=== PATIENT | female | born 1975 | race Caucasian/White ===

== ENCOUNTER → 2016-03-18 | Outpatient (CLI) | payer OTHER ==
[~2016-03-18] MED LIST: IOHEXOL 300 MG/ML 100ML VIAL. IV ONE
--- NOTE | 2016-03-18 13:03 | KCIC ---
PROCEDURE CT abdomen and pelvis with and without contrast. HISTORY Hematuria for 3 weeks with pelvic pain. TECHNIQUE Precontrast imaging through the abdomen and pelvis was performed. Late portovenous phase imaging through the abdomen was performed. Delayed imaging through the abdomen and pelvis was performed. Coronal and sagittal reformats are provided for the delayed imaging. Maximum intensity projection reformats are provided as well. The patient received 95 milliliters of intravenous Omnipaque 300. Patient developed hives upon administration of IV contrast. Patient had no known contrast allergy. Hives and itching improved after 25 milligrams of oral Benadryl given to the patient. Patient was observed and later discharged in stable condition. Patient was evaluated by the radiologist. Contrast allergy was documented per hospital protocol. One or more of the following individualized dose reduction techniques were utilized for this exam: 1. Automated exposure control. 2. Adjustment of the mA and/or kV according to patient's size. 3. Use of iterative reconstruction technique. COMPARISON February 22, 2016. FINDINGS Precontrast imaging does not demonstrate any obstructing or nonobstructing renal calculus. There is again a left pelvic kidney. There is no renal mass. Kidneys are symmetrically perfused. There is no filling defect within either collecting system. Right collecting system is well evaluated proximally, not evaluated below the pelvic inlet. Left renal collecting system is normal caliber and without filling defect, opacified in its entirety. No bladder mass is identified. Exam was protocolled to evaluate the kidneys and collecting systems, not other structures. The lung bases are clear. There is no pleural effusion. The heart is not enlarged. Liver, gallbladder, spleen, pancreas, and adrenals are all grossly unremarkable. Aorta is normal caliber. Left renal vein appears retro aortic. There is no small bowel obstruction or mural thickening. Colon is grossly unremarkable. Evaluation of bowel is limited without oral contrast. Uterus is retroverted. Free pelvic fluid may be physiologic. There is no adnexal mass. Calcified phleboliths are noted. Bony structures are intact. IMPRESSION 1. Negative for urothelial mass. A portion of the distal right ureter is not opacified, limiting evaluation. 2. Left pelvic kidney again noted. 3. Negative for urolithiasis. Electronically signed by: Parviz Tan MD (Mar 18, 2016 13:00:02)
== END | disposition home or self-care (01) ==
LOC: KCIC CT 08:57
PROVIDERS: ATTEND Nurse Practitioner Occupational Health
DX: R31.9 Hematuria, unspecified (principal)
CPT/HCPCS: 74178; 82565; Q9967

== ENCOUNTER → 2016-05-20 | Outpatient (CLI) | payer OTHER ==
--- NOTE | 2016-05-20 11:51 | KCIC ---
Right thumb, three views Indication: Right thumb pain. Time of exam 11:18 a.m. The alignment is normal. The 1st metacarpal as well as the phalanges of the thumb appear intact. No fractures are seen. The soft tissues are unremarkable. Impression: No acute bony abnormality is detected. Electronically signed by: Hema Blake MD (May 20, 2016 11:49:22)
--- NOTE | 2016-05-20 12:10 | KCIC ---
Wrist three views right Indication: Right thumb pain radiating to the wrist for 3 weeks. Time of exam 11:16 a.m. The distal radius and ulna are intact. The carpus and metacarpals are intact. No fractures are seen. Soft tissues are unremarkable. Impression: No acute bony abnormality is detected. Electronically signed by: Hema Blake MD (May 20, 2016 12:08:46)
== END | disposition home or self-care (01) ==
LOC: KCIC 10:53
PROVIDERS: ATTEND Nurse Practitioner Family
DX: M79.644 Pain in right finger(s) (principal)
CPT/HCPCS: 73110; 73140

== ENCOUNTER → 2017-05-08 | Outpatient (CLI) | payer OTHER | END | disposition home or self-care (01) | LOC: KCIC US 08:05 | DX: N92.0 Excessive and frequent menstruation with regular cycle (principal) | CPT/HCPCS: 76830; 76856 ==

== ENCOUNTER 2017-07-09 08:26 | Observation (INO) | payer OTHER ==
[~2017-07-09 08:26] MED LIST changes: +AZTREONAM 1 GM in IV NORMAL SALINE 50ML 50 ML IV; +ESTROGENS, CONJ VAGINAL CREAM 30GM TUBE.; -IOHEXOL 300 MG/ML 100ML VIAL. IV ONE; +LIDOCAINE 1% PF 2 ML VIAL. ID; +LIDOCAINE 1% PF 30 ML VIAL.; +ONDANSETRON PF 4 MG/2 ML VIAL. IV; +SURGICEL HEMOSTAT 4X8 EACH.; +fentaNYL PF VIAL 100 MCG/2 ML VIAL IV
[2017-07-09] MEDS ORDERED: LIDOCAINE 1%/EPI 1:100,000 20 ML VIAL. INJ (08:30)
[2017-07-09 08:58] LABS: ADD MAN DIFF? NO
[2017-07-09 09:00] LABS: BASO # 0.1 x10^3/uL (0.0-0.2); BASO % 1 % (0-3); EOS # 0.2 x10^3/uL (0.0-0.7); EOS % 3 % (0-3); HEMATOCRIT 39.2 % (36.0-47.0); HEMOGLOBIN 13.4 g/dL (12.0-15.5); LYMPH # 1.2 x10^3/uL (1.0-4.8); LYMPH % 20 % (24-48); MEAN CORPUSCULAR HEMOGLOBIN 29 pg (25-35); MEAN CORPUSCULAR HGB CONC 34 g/dL (31-37); MEAN CORPUSCULAR VOLUME 84 fL (79-100); MONO # 0.4 x10^3/uL (0.0-1.1); MONO % 7 % (0-9); NEUT # 4.2 x10^3uL (1.8-7.7); NEUT % 70 % (31-73); PLATELET COUNT 161 x10^3/uL (140-400); RED BLOOD COUNT 4.64 x10^6/uL (3.50-5.40); RED CELL DISTRIBUTION WIDTH 13.2 % (11.5-14.5); WHITE BLOOD COUNT 6.1 x10^3/uL (4.0-11.0)
[2017-07-09] MEDS: IV RINGERS,LACTATED 1000ML 1,000 ML IV (09:00)
[2017-07-09] MEDS ORDERED: ONDANSETRON PF 4 MG/2 ML VIAL. (09:17)
[2017-07-09] MEDS ORDERED: LIDOCAINE 2% PF Vial for OR 5 ML VIAL. (09:17)
[2017-07-09] MEDS ORDERED: PROPOFOL 0 ML IV (09:17)
[2017-07-09] MEDS ORDERED: DEXAMETHASONE SOD PHOS 20 MG/5 ML VIAL. (09:17)
[2017-07-09] MEDS ORDERED: MIDAZOLAM HCL/PF 2 MG/2 ML VIAL. (09:18)
[2017-07-09] MEDS ORDERED: fentaNYL PF VIAL 100 MCG/2 ML VIAL ×3 (09:18→11:22)
[2017-07-09] MEDS ORDERED: ROCURONIUM 50 MG/5 ML VIAL. (09:18)
[2017-07-09 09:22] LABS: NEG OBC UR NEG; POS OBC UR POS; U PREG PATIENT NEGATIVE (NEG)
[2017-07-09] MEDS: CLINDAMYCIN 900MG PREMIX 50 ML IV (09:30)
[2017-07-09] MEDS: AZTREONAM IV Push 1 GM VIAL. IVP (09:34)
[2017-07-09] MEDS: BUPIVACAINE-EPI 0.25%-1:200000 50 ML VIAL. (09:48)
[2017-07-09] MEDS: LIDOCAINE 1%/EPI 1:100,000 30 ML VIAL. IJ (09:48)
[2017-07-09] MEDS ORDERED: GLYCOPYRROLATE 1 MG/5 ML VIAL. (10:38)
[2017-07-09] MEDS ORDERED: NEOSTIGMINE METHYLSULFATE 5 MG/5 ML SYRINGE. (10:38)
[2017-07-09] MEDS ORDERED: PROPOFOL 20 ML IV (10:43)
[2017-07-09] MEDS ORDERED: SEVOFLURANE 61 TO 120 MINUTES. IH (10:48)
[2017-07-09] MEDS ORDERED: 0.9 % SODIUM CHLORIDE 10 ML DISP.SYRIN. IV (11:15)
[2017-07-09] MEDS ORDERED: ZOLPIDEM 5 MG TABLET. PO (11:15)
[2017-07-09] MEDS ORDERED: PROCHLORPERAZINE 10 MG/2 ML VIAL. IV (11:15)
[2017-07-09] MEDS ORDERED: DEXTROSE 50% 25 GM / 50ML DISP.SYRIN. IV (11:15)
[2017-07-09] MEDS ORDERED: ONDANSETRON PF 4 MG/2 ML VIAL. IV (11:15)
[2017-07-09] MEDS ORDERED: diphenhydrAMINE HCL 25 MG CAPSULE PO (11:15)
[2017-07-09] MEDS ORDERED: CALCIUM CARBONATE 500 MG TAB.CHEW PO (11:15)
[2017-07-09] MEDS ORDERED: diphenhydrAMINE 50 MG/ML VIAL IV (11:15)
[2017-07-09] MEDS ORDERED: KETOROLAC 30 MG/ML INJ. IV (11:15)
[2017-07-09] MEDS: fentaNYL PF VIAL 100 MCG/2 ML VIAL IV ×3 (11:27→11:57)
[2017-07-09] MEDS ORDERED: MORPHINE SULFATE 4 MG/ML DISP.SYRIN. (11:38)
[2017-07-09] MEDS: MORPHINE SULFATE 2 MG/ML DISP.SYRIN. IV ×2 (11:41→11:51)
[2017-07-09] MEDS: PROCHLORPERAZINE 10 MG/2 ML VIAL. IV (11:56)
[2017-07-09] MEDS ORDERED: IBUPROFEN 800 MG TABLET. PO (17:45)
[2017-07-09] MEDS: oxyCODONE/APAP 5/325 1 TAB TABLET PO (18:05)
[2017-07-09] MEDS: SIMETHICONE 80 MG TAB.CHEW PO (22:11)
[2017-07-09] MEDS: GABAPENTIN 300 MG CAPSULE. PO (22:11)
[2017-07-09] MEDS: OPIUM/BELLADONNA 30/16.2MG SUPP.RECT. PR (22:12)
[2017-07-10] MEDS: GABAPENTIN 300 MG CAPSULE. PO (06:26)
[2017-07-10 07:24] LABS: ADD MAN DIFF? NO
[2017-07-10 07:28] LABS: BASO # 0.1 x10^3/uL (0.0-0.2); BASO % 1 % (0-3); EOS # 0.1 x10^3/uL (0.0-0.7); EOS % 0 % (0-3); HEMATOCRIT 37.9 % (36.0-47.0); LYMPH # 2.4 x10^3/uL (1.0-4.8); LYMPH % 19 % (24-48); MEAN CORPUSCULAR HEMOGLOBIN 29 pg (25-35); MEAN CORPUSCULAR HGB CONC 34 g/dL (31-37); MEAN CORPUSCULAR VOLUME 84 fL (79-100); MONO # 0.9 x10^3/uL (0.0-1.1); MONO % 7 % (0-9); NEUT # 9.2 x10^3uL (1.8-7.7); NEUT % 73 % (31-73); PLATELET COUNT 192 x10^3/uL (140-400); RED BLOOD COUNT 4.49 x10^6/uL (3.50-5.40); RED CELL DISTRIBUTION WIDTH 13.3 % (11.5-14.5); WHITE BLOOD COUNT 12.6 x10^3/uL (4.0-11.0)
[2017-07-10] MEDS: SIMETHICONE 80 MG TAB.CHEW PO (08:47)
== END 2017-07-10 11:45 | disposition home or self-care (01) ==
LOC: SURG 08:26 → 3 NORTH 11:03
DX: N83.202 Unspecified ovarian cyst, left side (principal); N94.6 Dysmenorrhea, unspecified; N85.2 Hypertrophy of uterus
CPT/HCPCS: 36415; 81025; 85025; 86850; 86900; 86901; 88307; A7015; G0378; G0379; J0780; J1100; J2250; J2270; J2405; J2704; J2710; J3010; J3490; J7030; J7120

== ENCOUNTER → 2018-07-06 | Outpatient (CLI) | payer OTHER ==
[2017-07-10 11:21] VITALS: BP 102/59
[~2018-07-06] MED LIST changes: +ALBU2.5V8 INH; -AZTREONAM 1 GM in IV NORMAL SALINE 50ML 50 ML IV; +DOCU-109 PO; -ESTROGENS, CONJ VAGINAL CREAM 30GM TUBE.; +IBUP800T19 PO; -LIDOCAINE 1% PF 2 ML VIAL. ID; -LIDOCAINE 1% PF 30 ML VIAL.; -ONDANSETRON PF 4 MG/2 ML VIAL. IV; +OXYC1TAB7 PO; -SURGICEL HEMOSTAT 4X8 EACH.; -fentaNYL PF VIAL 100 MCG/2 ML VIAL IV
--- NOTE | 2018-07-06 16:18 | KCIC ---
3 views of the right knee dated 07/06/2018. No comparison available. Clinical data indication: Pain. FINDINGS: 3 views of the right knee show normal bony alignment. No displaced fracture. No acute osseous or articular abnormality. No apparent joint effusion or loose body. IMPRESSION: No acute radiographic abnormality. Electronically signed by: Dwayne Berumen MD (07/06/2018 4:15 PM) [email or web address]
== END | disposition home or self-care (01) ==
LOC: KCIC 15:40
PROVIDERS: ATTEND Family Medicine
DX: M25.561 Pain in right knee (principal)
CPT/HCPCS: 73562

== ENCOUNTER → 2018-08-31 | Outpatient (CLI) | payer OTHER ==
[2017-07-10 11:21] VITALS: BP 102/59
--- NOTE | 2018-09-01 09:44 | KCIC ---
HIP LEFT 2 VIEW, HIP RIGHT 2 VIEW, L-SPINE 6V AP/LAT/OBL/FLEX/EXT History: Chronic hip pain, lumbar pain Comparison: None. Right hip: Findings: 2 views of the right hip are submitted. No acute fracture or dislocation is identified. Right hip joint space is adequate. Right femoral head morphology is maintained. There is tiny osteophyte of the superior right acetabulum. There is mild degenerative change pubic symphysis. Impression: 1. No significant osseous abnormality is identified, tiny superior right acetabular osteophyte. Left hip: 2 views of the left hip are submitted. No acute fracture or dislocation is identified. Left hip joint space is adequate. There are likely phleboliths in the left pelvis. IMPRESSION: 1. No significant radiographic abnormality is identified of the left hip. Lumbar radiographs: 8 views of the lumbar spine are submitted. Lumbar vertebral body stature is adequate. There is facet degenerative change greater inferiorly of the lumbar spine. There is mild spondylosis greatest L3-4 and L4-5, very minimally L1-2. There is mild to moderate degenerative disc disease at L3-4 and L4-5. There is negligible posterior subluxation L3 relative to L4 slightly accentuated with extension and reduced with flexion. IMPRESSION: 1. There is degenerative disc disease and spondylosis greatest at L3-4 and L4-5. There is facet degenerative change greater inferiorly of the lumbar spine. There is negligible posterior subluxation L3 relative to L4. Electronically signed by: Emile Liu MD (09/01/2018 9:41 AM) [email or web address]
== END | disposition home or self-care (01) ==
LOC: KCIC 12:46
PROVIDERS: ATTEND Family Medicine
DX: M47.816 Spondylosis without myelopathy or radiculopathy, lumbar region (principal); M51.36 Other intervertebral disc degeneration, lumbar region; M25.78 Osteophyte, vertebrae; G89.29 Other chronic pain; M25.552 Pain in left hip; M25.551 Pain in right hip; X58.XXXA Exposure to other specified factors, initial encounter; Y93.89 Activity, other specified; Y92.89 Other specified places as the place of occurrence of the external cause; Y99.8 Other external cause status
CPT/HCPCS: 72114; 73502

== ENCOUNTER → 2018-10-21 | Outpatient (CLI) | payer OTHER ==
[2017-07-10 11:21] VITALS: BP 102/59
--- NOTE | 2018-10-21 10:07 | KCIC ---
EXAMINATION: Magnetic resonance imaging (MRI) of the lumbar spine without contrast 10/21/2018 9:30 AM HISTORY: Chronic low back pain. History of left pelvic kidney. TECHNIQUE: Multiplanar multi-weighted MRI of the lumbar spine was performed without intravenous contrast using the standard lumbar spine protocol. Contrast information: None administered. COMPARISON: Lumbar spine radiograph 08/31/2018 FINDINGS: There is minimal retrolisthesis of L3 on L4. Vertebral body heights are maintained. Schmorl's nodes are identified involving the endplates at L1, L2, L3 and L4. No significant height loss is identified. Conus medullaris terminates at T12. Distal spinal cord signal intensity is normal in all sequences. Cauda equina nerve roots appear intact. There is disc desiccation at all levels of lumbar spine, sparing L5-S1. There is mild disc height loss at L3-L4 with Modic type II endplate degenerative changes. Otherwise, marrow signal intensity is normal in all sequences. Abdominal aorta is normal in caliber. Left pelvic kidney is identified. Visualized portions of the sacrum appear intact. L1-L2: There is mild disc bulge. No significant facet arthropathy. No neuroforaminal or spinal canal stenosis. L2-L3: There is mild disc bulge with central annular fissure. No significant facet arthropathy. No neuroforaminal or spinal canal stenosis. L3-L4: There is mild disc bulge. There is mild facet arthropathy, left greater than right. Mild left neuroforaminal stenosis. No spinal canal stenosis. L4-L5: There is a disc bulge with central disc protrusion. There is moderate facet arthropathy ligamentum flavum infolding. There is moderate right and mild left neuroforaminal stenosis. No spinal canal stenosis. L5-S1: Disc is normal in configuration. There is moderate facet arthropathy. There is no neuroforaminal or spinal canal stenosis. IMPRESSION: Mild to moderate degenerative changes of the lumbar spine, as described in detail above. Electronically signed by: Anabell Morejon MD (10/21/2018 10:04 AM) [email or web address]
== END | disposition home or self-care (01) ==
LOC: KCIC MRI 09:14
PROVIDERS: ATTEND Physical Medicine & Rehabilitation
DX: M47.896 Other spondylosis, lumbar region (principal); M48.061 Spinal stenosis, lumbar region without neurogenic claudication; M12.88 Other specific arthropathies, not elsewhere classified, other specified site; G89.29 Other chronic pain
CPT/HCPCS: 72148

== ENCOUNTER → 2019-03-29 | Outpatient (CLI) | payer OTHER ==
[2017-07-10 11:21] VITALS: BP 102/59
--- NOTE | 2019-03-29 11:45 | KCIC ---
EXAM: MRI Lumbar Spine without IV contrast INDICATION: Chronic pain and numbness, tingling and pain in the lower extremities.. TECHNIQUE: Sagittal T1-w, T2-w, and STIR images, and axial T1-w and T2-w images of the lumbar spine. COMPARISON: L-spine MRI of October 21, 2018 FINDINGS: The lowest fully formed disc is referred to as the L5-S1 level. ALIGNMENT: Alignment is within normal limits. OSSEOUS: No evidence of fracture or bone destruction. Marrow signal is within normal limits. CONUS MEDULLARIS & CAUDA EQUINA: The conus medullaris is in normal position. The conus medullaris and cauda equina are intrinsically normal. SOFT TISSUES: Left pelvic kidney redemonstrated. DISC LEVELS: T12-L1: Unremarkable. L1-L2: Disc desiccation with minimal loss of height. No significant stenosis. L2-L3: Mild right greater than left bilateral facet hypertrophy. No stenosis. L3-L4: Diffuse disc desiccation and loss of height with broad posterior disc bulge along with bilateral facet hypertrophy results in mild left greater than right bilateral foraminal narrowing. No central canal stenosis. L4-L5: Discussed by complex with both the central and right extraforaminal focal disc protrusion is present along with bilateral facet hypertrophy. Together, these results in at least moderate bilateral foraminal narrowing, right greater than left. No central canal stenosis. L5-S1: Mild bilateral facet hypertrophy. No significant stenosis. IMPRESSION: Multilevel lumbar spinal degenerative spondylosis as described, most conspicuously at L4-L5 where at least moderate right greater than left bilateral foraminal stenosis is present. Overall, findings are similar to the previous exam. Electronically signed by: Nica Maldonado MD (03/29/2019 11:42 AM) [facility]
== END | disposition home or self-care (01) ==
LOC: KCIC MRI 09:07
PROVIDERS: ATTEND Nurse Practitioner Family
DX: M47.816 Spondylosis without myelopathy or radiculopathy, lumbar region (principal); M48.061 Spinal stenosis, lumbar region without neurogenic claudication; M89.38 Hypertrophy of bone, other site; M51.26 Other intervertebral disc displacement, lumbar region
CPT/HCPCS: 72148

== ENCOUNTER → 2019-04-21 | Outpatient (CLI) | payer OTHER ==
[2017-07-10 11:21] VITALS: BP 102/59
[~2019-04-21] MED LIST changes: +CETI10TA16 PO; +DICL75TA PO; +FLUO10TA PO; +MELO15TA23 PO; +RANI300C PO
--- NOTE | 2019-04-21 11:35 | PAIN ---
DATE OF SERVICE: 04/21/2019 INITIAL CONSULTATION FOR PAIN CLINIC CHIEF COMPLAINT: Low back, left lower extremity pain. HISTORY OF PRESENT ILLNESS: This is a 43-year-old female, who presents with history of pain in low back, left lower extremity for about 2 years, gradually increasing, not a result of any specific injury or accident she is aware of, but is getting worse over time, especially with standing when she does at her place of employment. The patient reports the pain is constant, sharp, stabbing, throbbing, shooting in the low back radiating to posterior gluteus, lateral thigh, lateral anterior thigh, medial thigh, into the medial lower leg as well on the left side, but also on the right, much worse on the left. The patient reports it is radiating, burning, cramping and aching in the back as well. The patient has tried physical therapy, has had chiropractic treatment, is doing exercise currently. She has had some trigger point injections which were not significantly helpful. Physical therapy was helpful, but only moderately. She is still doing the exercises from the therapy that was in 2018 as well. The patient is taking meloxicam daily, which does decrease the pain by about 20-30%. The patient reports pain awakens her from sleep at night at least 3-4 times, does not affect her bowel or bladder control, but does affect her ability to walk. She is not using assistive devices, however, to ambulate. The patient rates her disability rating 0-10, 10 being the worst, is a 6 with family home responsibilities, social activity and sexual behavior, 7 with recreation, 8 with occupational activities, 5 with self-care and life support activities. The patient did have MRI scan of the lumbar spine showing most significant findings at L4-L5 with diffuse disk desiccation and complex with central and right extraforaminal focal disk protrusion with bilateral facet hypertrophy, moderate bilateral foraminal narrowing, right greater than left, without central stenosis at L3-L4 shows diffuse disk desiccation and loss of height with broad posterior disk bulge, resulting in mild left greater than right bilateral foraminal narrowing as well. The patient reports no loss of motor function, but significant fatigability with walking, especially with standing, which she does at work. PAST MEDICAL HISTORY: Significant for arthritis, cigarette smoking, migraine headaches. PREVIOUS SURGERY: Include hysterectomy and exploratory laparoscopy. CURRENT MEDICATIONS: Include meloxicam, multivitamins, fluoxetine, Zantac, Zyrtec and nystatin. ALLERGIES: THE PATIENT IS ALLERGIC TO CONTRAST AND PENICILLIN. FAMILY HISTORY: Significant for diabetes. SOCIAL HISTORY: The patient reports that she does not drink alcohol. Smokes about half pack of cigarettes a day and has for many years, about 15 years. Does not use any illegal, illicit or recreational drugs, is single, lives locally in the [place], [place] and has 3 children living at home with her. 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 REVIEW OF SYSTEMS: The patient's review of systems is positive for those items mentioned in history of present illness. All systems reviewed and otherwise negative. It is complete, full and well documented on the patient's chart. PHYSICAL EXAMINATION: VITAL SIGNS: The patient's blood pressure 119/68, pulse 73, respirations 18, temperature 98.1 degrees Fahrenheit, height 6 feet, weight is 171 pounds. GENERAL: The patient is awake, alert, oriented, appropriate, very pleasant demeanor. HEENT: Shows normocephalic, atraumatic. Extraocular movements are intact and symmetrical. Oral cavity: Mucous membranes moist and pink. Dentition is intact. NECK: Shows anterior throat supple without palpable lymphadenopathy noted. Swallow reflex symmetrical. CHEST: Shows normal on inspection. Breath sounds are clear to auscultation bilaterally. HEART: Shows S1, S2 clear. No murmurs auscultated. ABDOMEN: Soft, nontender, nondistended. No palpable organomegaly is noted. No rebound or guarding demonstrated. BACK: Shows spine grossly in the midline. Normal appearing cervical lordotic curvature, thoracic kyphotic curvature and lumbar lordotic curvature. Lumbar paraspinous muscle shows symmetrical on inspection, with palpation shows some moderate tenderness diffusely bilaterally going diffusely without significant radiation. The patient shows good rotational motion of lumbar spine, both laterally as well as extension and flexion without significant increase in pain. There is some moderate tenderness over the posterior superior iliac spine on the left as well as the posterior sacroiliac region on the left side, but only moderately. Her right side is nontender. Paraspinous muscle shows some moderate tenderness with palpation in the low lumbar distribution on the left, but not the right, appears symmetrical without evidence of atrophy, hypertrophy, no trigger points or radiation of pain. EXTREMITIES: The patient's lower extremities show deep tendon reflexes are 2+ in the patellar, 1+ tendo-calcaneus tendons. Motor exam is strong with 5/5 dorsiflexion, extension, quadriceps and hamstring flexion symmetrical. Peripheral pulses are 1+ posterior tibia. No peripheral edema is noted. Straight leg raise noted to be negative for reproduction of radicular symptoms bilaterally as her Brian's and Gaenslen's maneuvers bilaterally. The patient is able to stand, stand on her toes without significant difficulty or loss of balance, walks with a normal-appearing gait, does not appear to favor the right or left lower extremity on short distance walking, not using any assistive devices to ambulate. SKIN: Shows warm and dry, good turgor. No edema. No sores, rashes or bruising throughout. IMPRESSION: 1. This is a 43-year-old female with approximately 2-year history of increasing pain, low back, left lower extremity in L4-L5 dermatomal distribution in a radicular pattern. 2. MRI scan of lumbar spine as noted. 3. Arthritis. PLAN: Options were discussed with the patient including conservative medical managements, physical therapies and interventional techniques and she has had physical therapy. She is currently doing exercises on her own, is taking meloxicam without significant reduction in pain. She would like to pursue interventional techniques. We discussed a lumbar epidural steroid injection using description as well as anatomical models to describe the procedure. The patient will wait for preauthorization with her insurance provider and have her return for L4-L5 level translaminar lumbar epidural steroid injection at that time. In the meantime, the patient will try Medrol Dosepak, was given instruction as well as side effects to be aware of with the medication and will follow up in approximately 2 weeks. We will plan on lumbar epidural steroid injection on return. SANJUANA CALHOUN MD DR: HAWK/joseph JOB#: [id number] / [id number] DANIEL Munoz APRN
== END ==
LOC: PNCL 08:41
PROVIDERS: ATTEND Anesthesiology
DX: M54.5 Low back pain (principal); M79.662 Pain in left lower leg; G43.909 Migraine, unspecified, not intractable, without status migrainosus; F17.210 Nicotine dependence, cigarettes, uncomplicated; Z87.39 Personal history of other diseases of the musculoskeletal system and connective tissue; Z90.710 Acquired absence of both cervix and uterus; Z88.0 Allergy status to penicillin; Z91.041 Radiographic dye allergy status
CPT/HCPCS: G0463